=== PATIENT | male | born 1945 | race Caucasian/White ===

== ENCOUNTER 2019-07-28 06:57 | Outpatient (CLI) | payer MEDICARE, OTHER ==
[~2019-07-28] VITALS: Ht 177.8 cm; Wt 55.0 kg
[~2019-07-28 06:57] MED LIST: NO HOME MEDICATIONS
[2019-07-28 07:20] VITALS: BP 167/52; PULSE 52; TEMP 97.4
[2019-07-28] MEDS ORDERED: ATACAND32 MG PO (07:23)
[2019-07-28] MEDS ORDERED: KEPPRA 500MG500 MG PO (07:23)
[2019-07-28] MEDS ORDERED: NORVASC 5MG5 MG/TAB PO (07:23)
[2019-07-28] MEDS ORDERED: BETAPACEAF120 PO (07:24)
[2019-07-28] MEDS ORDERED: LIPITOR20 MG PO (07:25)
[2019-07-28] MEDS ORDERED: LEXAPRO 10MG10 MG PO (07:25)
[2019-07-28] MEDS ORDERED: ELIQUIS 5MG PO (07:26)
[2019-07-28] MEDS ORDERED: EPA FISH OIL1 SGL PO (07:27)
[2019-07-28 07:49] LABS: HEMOGLOBIN 10.6 g/dl (13.5-18.0); MEAN CELL VOLUME 86 fl (80.0-100.0); MEAN CORPUSCULAR HEMOGLOBIN 26 pg (27.0-31.0); MEAN CORPUSCULAR HGB CONC 31 g/dl (33.0-37.0); MEAN PLATELET VOLUME 10.3 fl (7.4-10.4); PLATELET COUNT 298 K/mm3 (130-400); RED BLOOD COUNT 4.03 M/mm3 (4.20-5.60)
[2019-07-28 07:53] LABS: HEMATOCRIT 34.5 % (42.0-52.0)
[2019-07-28 07:58] LABS: INR 1.3 (0.8-3.0); PROTHROMBIN TIME 15.2 SECONDS (9.7-12.8)
[2019-07-28 07:59] LABS: CALCIUM 9.5 mg/dL (8.4-10.2); CREATININE, serum 1.18 (0.66-1.25); POTASSIUM 4.5 mmol/L (3.4-5.0)
[2019-07-28 09:40] VITALS: BP 151/57; PULSE 54
--- NOTE | 2019-07-28 09:40 | NUR ---
KAYLA complete and report received from Jimbo Santiago RN. Pt resting well, at bedside.
[2019-07-28 09:55] VITALS: BP 161/61; PULSE 52
[2019-07-28 10:10] VITALS: BP 177/66; PULSE 59
[2019-07-28 10:25] VITALS: BP 183/73; PULSE 57
--- NOTE | 2019-07-28 10:30 | NUR ---
Pt has ambulated and nicole PO intake s n/v. PIV removed with catheter intact.
--- NOTE | 2019-07-28 10:45 | NUR ---
Pt discharged per w/c by nurse with .
== END 2019-07-28 11:43 | disposition home or self-care (01) ==
LOC: EUO 06:57 → COL.RAD 07:00 → EUO 11:43
PROVIDERS: Internal Medicine Cardiovascular Disease
DX: I35.0 Nonrheumatic aortic (valve) stenosis (principal)
CPT/HCPCS: J2704; J7120